=== PATIENT | female | born 1955 | race Caucasian/White ===

== ENCOUNTER 2021-09-29 18:13 | Inpatient (IN) | payer MEDICARE, BC ==
[~2021-09-29] VITALS: Ht 180.3 cm; Wt 65.3 kg
[2021-09-29] MEDS ORDERED: LEVO100T9 PO (19:43)
[2021-09-29] MEDS ORDERED: ZOLP12.52 PO (19:45)
[2021-09-29 20:00] VITALS: BP 150/67
[2021-09-29] MEDS ORDERED: MAGNESIUM HYDROXIDE 30 ML UDC PO PRN (20:00)
[2021-09-29] MEDS ORDERED: MAG HYDROX/AL HYDROX/SIMETH 30 ML UDC PO PRN (20:00)
[2021-09-29] MEDS ORDERED: LORAZEPAM 0.5 MG TABLET PO PRN (20:00)
--- NOTE | 2021-09-29 20:00 | NUR ---
RN NOTE: RECEIVED PT. DIRECT ADMIT AWAKE ALERT. NO S/SX OF ACUTE DISTRESS NOTED. PATIENT IS, ANXIOUS,EASILY AGITATED,HYPERVERBAL, NEEDY DEMENDING, FREQUENTLY REDIRECTIONS. SAFETY PRECAUTIONS MAINTAINED. WILL CONTINUE TO MONITOR Q15MIN ROUNDS FOR SAFETY AND BEHAVIOR.
[2021-09-29] MEDS ORDERED: BLOOD SUGAR DIAGNOSTIC 1 EACH STRIP IN ONE (20:30)
[2021-09-29] MEDS: ACETAMINOPHEN 325 MG TABLET PO PRN (21:17)
--- NOTE | 2021-09-29 22:23 | NUR ---
RN NOTES: ANXIETY PT. C/O FEELING ANXIOUS RESTLESS,PARANOID PRN ATIVAN 0.5 MG PO GIVEN , WILL CONTINUE TO MONITOR.
[2021-09-29 22:56] VITALS: BP 129/80
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
--- NOTE | 2021-09-29 23:12 | NUR ---
RN NOTES: REFUSED SKIN SKIN ASESSMENT PT. REFUSED SKIN ASSESSMENT AND PHOTOS TAKEN , PER PT. MY SKIN IS FINE , NO NEED TO BE ASSESS , PT BEHAVIOR UNCOOPERTIVE ANXIOUS, RESTLESS,PARANOID , ENCOURAGED X3 BUT PT. STRONGLY REFUSED.
[2021-09-30 07:26] LABS: BASOPHILS % (AUTO) 0.4 % (0.0-2.0); EOSINOPHILS % (AUTO) 1.5 % (0.0-6.0); HEMATOCRIT 31 % (33-45); HEMOGLOBIN 10.8 g/dL (11.5-14.8); LYMPHOCYTES # (AUTO) 0.8 K/uL (0.8-4.8); LYMPHOCYTES % (AUTO) 18.7 % (20.0-44.0); MEAN CORPUSCULAR HGB CONC 35 g/dl (31.0-36.0); MEAN CORPUSCULAR VOLUME 91 fL (82-100); MONOCYTES # (AUTO) 0.4 K/uL (0.1-1.30); MONOCYTES % (AUTO) 9.4 % (2.0-12.0); PLATELET COUNT (AUTO) 206 K/uL (150-450); RED BLOOD CELL COUNT(AUTO) 3.38 MIL/uL (4.0-5.2); WHITE BLOOD COUNT (AUTO) 4.3 K/uL (4.3-11.0)
[2021-09-30 07:54] LABS: CALCIUM, SERUM 8.2 mg/dL (8.5-10.1); CREATININE 0.8 mg/dL (0.6-1.3); POTASSIUM 3.2 mmol/L (3.5-5.1)
--- NOTE | 2021-09-30 09:15 | NUR ---
GPS RN NOTE, RECEIVED PATIENT AWAKE AND IN BED, A/O X4 , NO S/S OR COMPLAINTS OF PAIN AT THIS TIME. ROOM AIR AND NO SOB OR DISTRESS NOTED , CALM, AND COOPERATIVE. PATIENT DENIES SUICIDAL AND HOMICIDAL IDEATIONS AT THIS TIME. PATIENT HAS NO NEEDS AT THIS TIME. PATIENT BED SIDE RAILS UP X 2 FOR SAFETY. PATIENT BED IS LOCKED, LOW, WITH BED ALARM ON. WILL CONTINUE TO MONITOR THIS PATIENT Q15 MINUTES WITH THE HELP OF STAFF TO MAINTAIN SAFETY.
[2021-09-30] MEDS: DIVALPROEX SODIUM 125 MG TABLET.DR PO SCH ×2 (10:00→10:47)
[2021-09-30] MEDS: OLANZAPINE 5 MG TABLET PO SCH ×2 (10:00→10:46)
--- NOTE | 2021-09-30 10:50 | NUR ---
RN NOTE PATIENT REFUSED THE 1000 MEDS OFFERED 3X
[2021-09-30] MEDS: POTASSIUM CHLORIDE 20 MEQ TAB.PRT.SR PO SCH ×2 (12:08→12:52)
--- NOTE | 2021-09-30 12:45 | NUR ---
RN-CO: DR RIVAS WAS NOTIFIED TO RECONCILE HOME MEDICATION.
--- NOTE | 2021-09-30 18:29 | NUR ---
GPS RN CLOSING NOTES PATIENT AWAKE , A/O X3 , REFUSED DEPAKOTE AND OLANZAPINE MEDICATION DUE AT 1000 , WITH ANXIOUS , DEMANDING AND HYEPRVERBAL BEHAVIOR NOTED, KEPT ON ASKING WHEN SHES GONNA BE DISCHARGE , NOTED WITH LOW K 3.2 AND K REPLACED WITH 40 MEQ BY MOUTH AND PATIENT TOOK IT , ALL NEEDS ATTENEDED AND SAFETY PRECAUTIONS PROVIDED ,ENDORSED TO NEXT SHIFT
--- NOTE | 2021-09-30 18:33 | NUR ---
RN-CO: PATIENT REFUSED T3 AND T4, ENCOURAGED SEVERAL TIMES BUT SHE STILL REFUSED.
--- NOTE | 2021-09-30 19:15 | NUR ---
GPS RN NOTES RECEIVED PATIENT IN BED AWAKE, ALERT AND ORIENTED X4, ABLE TO MAKE NEEDS KNOWN. AT PT'S BEDSIDE SUPPORTIVE WITH CARE. NO S/SX OF ACUTE DISTRESS NOTED. PATIENT REMAINS ANXIOUS, DEMANDING, NEEDY, HYPERVERBAL AND UNCOOPERATIVE. DENIES SI/HI/AVH AT THIS TIME. SAFETY PRECAUTIONS MAINTAINED. WILL CONTINUE TO MONITOR Q15MIN ROUNDS FOR SAFETY AND BEHAVIOR.
--- NOTE | 2021-09-30 20:00 | NUR ---
GPS RN NOTES PATIENT REFUSED WEEKLY SKIN ASSESSMENT. EXPLAINED RISK AND BENEFITS BUT PATIENT BECAME AGITATED.
[2021-09-30] MEDS: TEMAZEPAM 7.5 MG CAPSULE PO PRN (23:43)
--- NOTE | 2021-10-01 06:52 | NUR ---
GPS RN NOTES PATIENT REFUSED AM LABS. EXPLAINED RISKS AND BENEFITS. PATIENT CONTINUED TO REFUSE. WILL ENDORSE TO DAY SHIFT NURSE FOR CONTINUITY OF CARE.
[2021-10-01] MEDS: LEVOTHYROXINE SODIUM 100 MCG TABLET PO SCH (07:59)
[2021-10-01] MEDS: DIVALPROEX SODIUM 125 MG TABLET.DR PO SCH ×3 (08:38→21:00)
--- NOTE | 2021-10-01 09:25 | NUR ---
Patient refused Depakote ,encourage patient and explained benefit of medication ,still refused notified by charge Nurse.
--- NOTE | 2021-10-01 09:30 | NUR ---
RN-CO: DR Corona notified regarding pt's refusal to take medications especially Depakote and Zyprexa.
--- NOTE | 2021-10-01 10:17 | NUR ---
JASPAL Initial Discharge Note: Patient reported that she lives with her at home [address] [place] [address];[phone]. Pt stated that she would want to return back home upon dc. JASPAL will work with the pt, family, and MD to help coordinate appropriate discharge.
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
--- NOTE | 2021-10-01 15:03 | NUR ---
RN-CO: PT REFUSED LAB WORKS, ENC 3X BUT STILL REFUSED.
--- NOTE | 2021-10-01 18:44 | NUR ---
Patient refused BMP X3 ,ENCOURAGED PATIENT , STILL REFUSED .WILL CONTINUE TO MONITOR .
--- NOTE | 2021-10-01 19:48 | NUR ---
GPS RN OPENING NOTES: RECEIVED PATIENT IN BED, AWAKE, A/O X2-3. APPEARS DEPRESSED, FLAT AFFECT, AGGRESSIVE, HYPERVERBAL, ANXIOUS, RESTLESS, GUARDED, DISORGANIZED, UNCOOPERATIVE. STATING "WHO BROUGHT ME HERE, I DON'T WANT ANYTHING FROM YOU. I AM CALLING MY SUPERINTENDENT [employer]ILL". REFUSING TO LISTEN TO STAFF AND REDIRECTION. NO S/S OF DISTRESS. RESPIRATION EVEN AND UNLABORED WITH EQUAL RISE AND FALL OF THE CHEST, ON ROOM AIR. OFFERED FLUID AND SNACKS TOLERATED. BED IN LOWEST POSITION AND LOCKED, SIDE RAILS UP X2 FOR SAFETY. WILL CONTINUE TO MONITOR Q15 FOR MOOD, SAFETY AND BEHAVIOR.
--- NOTE | 2021-10-01 21:56 | NUR ---
GPS RN NOTES: PATIENT REFUSED DEPAKOTE 125MG AT 2100. PATIENT WAS UNCOOPERATIVE AND AGITATED. PER PATIENT "I'M A NURSE PRACTITIONER, I DON'T TAKE PSYCH MEDICATIONS". EDUCATION PROVIDED ON MEDICATION COMPLIANCE BUT PATIENT NEEDS REENFORCEMENT.
--- NOTE | 2021-10-01 22:08 | NUR ---
GPS RN NOTES: DEPAKOTE 125MG 1TAB, RETURNED TO [facility] AT 2207.
[2021-10-02] MEDS: TEMAZEPAM 7.5 MG CAPSULE PO PRN ×2 (00:11→22:58)
--- NOTE | 2021-10-02 00:13 | NUR ---
GPS RN NOTE: INSOMNIA PATIENT C/O INABILITY TO SLEEP AND WANTED TO TAKE SLEEPING MEDICINE. PRN RESTORIL 7.5 MG 1 CAP PO ADMINISTERED PER PATIENT REQUEST.
[2021-10-02] MEDS: LEVOTHYROXINE SODIUM 100 MCG TABLET PO SCH (08:00)
[2021-10-02] MEDS: OLANZAPINE 5 MG TABLET PO SCH (09:00)
[2021-10-02] MEDS: DIVALPROEX SODIUM 125 MG TABLET.DR PO SCH ×2 (09:00→21:53)
--- NOTE | 2021-10-02 11:02 | NUR ---
Individual Therapy: SW attempted to conduct brief therapy. Pt appeared labile and hyperverbal. She stated "what do you want?". Pt was uncooperative at this time and was angry.
--- NOTE | 2021-10-02 19:30 | NUR ---
GPS RN OPENING NOTES: RECEIVED PATIENT IN BED, AWAKE, A/O X2-3. APPEARS DEPRESSED, FLAT AFFECT, AGITATED, HYPERVERBAL, ANXIOUS, RESTLESS, SUSPICIOUS, DISORGANIZED, LOOSE ASSOCIATIONS, UNCOOPERATIVE, LOUD, DEMANDING, NEEDY. THREATENING TO TAVIA THE FACILITY FOR BEING HERE. 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 REFUSING TO LISTEN TO STAFF AND REDIRECTION. NO S/S OF DISTRESS. RESPIRATION EVEN AND UNLABORED WITH EQUAL RISE AND FALL OF THE CHEST, ON ROOM AIR. OFFERED FLUID AND SNACKS TOLERATED. BED IN LOWEST POSITION AND LOCKED, SIDE RAILS UP X2 FOR SAFETY. WILL CONTINUE TO MONITOR Q15 FOR MOOD, SAFETY AND BEHAVIOR.
[2021-10-02 20:11] VITALS: BP 145/83
--- NOTE | 2021-10-02 21:58 | NUR ---
GPS RN NOTES: PATIENT TOOK DEPAKOTE 125MG PO THIS SHIFT.
--- NOTE | 2021-10-02 23:05 | NUR ---
GPS RN NOTES: PATIENT REQUESTED FOR SLEEP MEDICATION D/T INSOMNIA. RESTORIL 7.5MG GIVEN PO AT 2258. WILL CONTINUE TO MONITOR.
--- NOTE | 2021-10-03 06:54 | NUR ---
GPS RN CLOSING NOTES: PATIENT IS AWAKE, A/O X2-3. PATIENT SLEPT 6HRS THIS SHIFT. NO S/S OF DISTRESS. RESPIRATION EVEN AND UNLABORED WITH EQUAL RISE AND FALL OF THE CHEST, ON ROOM AIR. ALL PATIENT CARE NEEDS HAVE BEEN MET ANTICIPATED. BED LOCKED AND IN LOWEST POSITION, SIDE RAILS UP X2 FOR SAFETY, BED ALARM WITHIN REACH. WILL CONTINUE TO MONITOR Q15 FOR SAFETY, MOOD AND BEHAVIOR AND ENDORSE TO AM SHIFT.
[2021-10-03] MEDS: LEVOTHYROXINE SODIUM 100 MCG TABLET PO SCH (08:10)
[2021-10-03] MEDS: DIVALPROEX SODIUM 250 MG TABLET.DR PO SCH ×2 (08:33→21:08)
[2021-10-03] MEDS: OLANZAPINE 5 MG TABLET PO SCH ×3 (08:33→16:53)
--- NOTE | 2021-10-03 09:38 | NUR ---
JASPAL Coordination of Care: Patient will follow up with (Rescue Instructor) Dr. Klaus Gill located at [address] [place] [address]; ([phone]) on October 15 on 11AM, scheduled by Joey.
[2021-10-03] MEDS ORDERED: HALOPERIDOL LACTATE INJ 5 MG/ML VIAL IM PRN (13:30)
--- NOTE | 2021-10-03 13:35 | NUR ---
ROLOCO; RECEIVED AN ORDER FROM DR DAVIS TO DC ZYPREXA DAILY, TO ZYPREXA 5 MG BID PO . THEN GIVE HALDOL 5 MG IM BID FOR EACH REFUSAL OF ZYPREXA.
--- NOTE | 2021-10-03 19:30 | NUR ---
GPS RN OPENING NOTES: RECEIVED PATIENT IN BED, AWAKE, A/O X2-3. APPEARS DEPRESSED, FLAT AFFECT, AGITATED, HYPERVERBAL, ANXIOUS, RESTLESS, SUSPICIOUS, DISORGANIZED, LOOSE ASSOCIATIONS, UNCOOPERATIVE, LOUD, DEMANDING, NEEDY. NO S/S OF DISTRESS. RESPIRATION EVEN AND UNLABORED WITH EQUAL RISE AND FALL OF THE CHEST, ON ROOM AIR. OFFERED FLUID AND SNACKS TOLERATED. BED IN LOWEST POSITION AND LOCKED, SIDE RAILS UP X2 FOR SAFETY. WILL CONTINUE TO MONITOR Q15 FOR MOOD, SAFETY AND BEHAVIOR.
[2021-10-03 20:00] VITALS: BP 112/65
--- NOTE | 2021-10-03 21:20 | NUR ---
GPS RN NOTES: PATIENT IS RIESED BUT TOOK DEPAKOTE 250MG PO THIS SHIFT.
[2021-10-04 08:00] VITALS: BP 150/73
[2021-10-04] MEDS: OLANZAPINE 5 MG TABLET PO SCH ×2 (09:00→16:13)
[2021-10-04] MEDS: DIVALPROEX SODIUM 250 MG TABLET.DR PO SCH ×2 (09:00→21:10)
[2021-10-04] MEDS: LEVOTHYROXINE SODIUM 100 MCG TABLET PO SCH (09:00)
--- NOTE | 2021-10-04 10:35 | NUR ---
RN Notes: Received pt. awake in bed, hyperverbal and loud. Ate 100% for breakfast, compliant on meds after talking with the . Pt. is loud, hyperverbal, irritable, angry mood, agitated, anxious and focusing on the discharge. Pt. refused to take prn med, encouraged to verbalize feelings and motivated to atten group activity. Needs attended and will continue to monitor for safety.
[2021-10-04 16:00] VITALS: BP 144/66
--- NOTE | 2021-10-04 19:15 | NUR ---
GPS RN NOTES RECEIVED PATIENT IN BED AWAKE, ALERT AND ORIENTED X4, ABLE TO MAKE NEEDS KNOWN. AT PT'S BEDSIDE SUPPORTIVE WITH CARE. NO S/SX OF ACUTE DISTRESS NOTED. PATIENT REMAINS ANXIOUS, DEMANDING, NEEDY, LOUD, HYPERVERBAL, UNCOOPERATIVE, FOCUS ON DISCHARGE. DENIES SI/HI/AVH AT THIS TIME. SAFETY PRECAUTIONS MAINTAINED. WILL CONTINUE TO MONITOR Q15MIN ROUNDS FOR SAFETY AND BEHAVIOR.
[2021-10-05] MEDS: LEVOTHYROXINE SODIUM 100 MCG TABLET PO SCH (09:03)
[2021-10-05] MEDS: DIVALPROEX SODIUM 250 MG TABLET.DR PO SCH ×2 (09:03→20:22)
[2021-10-05] MEDS: OLANZAPINE 5 MG TABLET PO SCH ×2 (09:03→16:12)
--- NOTE | 2021-10-05 10:10 | NUR ---
RN Notes: Received pt. awake in bed, hyperverbal and loud. Pt. refused for a V/S checked and telling after talking with the but after talking with the she is still refusing for v/s. Ate 100% for breakfast, compliant on meds after talking with the . Pt. is loud, hyperverbal, irritable, angry mood, agitated, anxious, needy and focusing on the discharge. Encouraged to verbalize feelings and motivated to take shower. Needs attended and will continue to monitor for safety.
--- NOTE | 2021-10-05 14:59 | NUR ---
JASPAL Note: JASPAL and nurse BELINDA Monte assessed pt of sexual orientation due to missing part of the assessment. Pt stated that she is bi-sexual and that she "swings". JASPAL notified this information to Dr. De.
[2021-10-05 16:00] VITALS: BP 126/57
[2021-10-05] MEDS: TEMAZEPAM 7.5 MG CAPSULE PO PRN (20:25)
[2021-10-06 08:00] VITALS: BP 125/66
[2021-10-06] MEDS: LEVOTHYROXINE SODIUM 100 MCG TABLET PO SCH (08:14)
[2021-10-06] MEDS: DIVALPROEX SODIUM 250 MG TABLET.DR PO SCH ×2 (08:14→21:35)
[2021-10-06] MEDS: OLANZAPINE 5 MG TABLET PO SCH ×2 (08:14→16:13)
--- NOTE | 2021-10-06 09:30 | NUR ---
RN Notes: Received pt. awake in bed, hyperverbal and loud. Pt. is needy, easily got irritated, angry mood, focus in the discharge and forgetful. Ate 100% for breakfast, compliant on meds. Pt. was assisted to call with the , needs attended. Encouraged to verbalize feelings, motivated to attend group activity and encouraged to take shower. Needs attended and will continue to monitor for safety.
--- NOTE | 2021-10-06 15:49 | NUR ---
Pt. has been asking to take shower. Staff prepares everything needed for shower and by the time pt. is on the shower, she refused to take shower and been doing it 2x.
[2021-10-06 16:00] VITALS: BP 127/69
--- NOTE | 2021-10-06 19:15 | NUR ---
GPS RN NOTES RECEIVED PATIENT IN BED AWAKE, ALERT AND ORIENTED X4, ABLE TO MAKE NEEDS KNOWN. AT PT'S BEDSIDE SUPPORTIVE WITH CARE. NO S/SX OF ACUTE DISTRESS NOTED. PATIENT REMAINS ANXIOUS, LOUD, DEMANDING, NEEDY, HYPERVERBAL, FOCUSED ON DISCHARGE. DENIES SI/HI/AVH AT THIS TIME. SAFETY PRECAUTIONS MAINTAINED. WILL CONTINUE TO MONITOR Q15MIN ROUNDS FOR SAFETY AND BEHAVIOR.
[2021-10-07] MEDS: ACETAMINOPHEN 325 MG TABLET PO PRN ×2 (03:23→15:02)
--- NOTE | 2021-10-07 07:26 | NUR ---
GPS RN OPENING NOTE RECEIVED PATIENT IN BED AWAKE, ALERT AND ORIENTED X4, ABLE TO MAKE NEEDS KNOWN. NO S/SX OF ACUTE DISTRESS NOTED. DENIES SI/HI/AVH AT THIS TIME. SAFETY PRECAUTIONS MAINTAINED. WILL CONTINUE TO MONITOR Q15MIN ROUNDS FOR SAFETY AND BEHAVIOR.
[2021-10-07 08:00] VITALS: BP 123/68
[2021-10-07] MEDS: LEVOTHYROXINE SODIUM 100 MCG TABLET PO SCH (08:23)
[2021-10-07] MEDS: OLANZAPINE 5 MG TABLET PO SCH ×2 (08:23→16:26)
[2021-10-07] MEDS: DIVALPROEX SODIUM 250 MG TABLET.DR PO SCH ×2 (08:23→21:00)
--- NOTE | 2021-10-07 13:15 | NUR ---
GPS RN NOTE PATIENT IN BED AWAKE, ALERT AND ORIENTED X4, ABLE TO MAKE NEEDS KNOWN. NO S/SX OF ACUTE DISTRESS NOTED. PATIENT REMAINS ANXIOUS, LOUD, DEMANDING, NEEDY, HYPERVERBAL, FOCUSED ON DISCHARGE. DENIES SI/HI/AVH AT THIS TIME. SAFETY PRECAUTIONS MAINTAINED. WILL CONTINUE TO MONITOR Q15MIN ROUNDS FOR SAFETY AND BEHAVIOR.
--- NOTE | 2021-10-07 15:03 | NUR ---
GPS RN NOTE PT C/O BACK PAIN AND REQUESTED FOR TYLENOL. TYLENOL 650MG PO GIVEN ORDERED PRN Q6HR. WILL MONITOR AND REASSESS PT.
[2021-10-07 16:00] VITALS: BP 118/72
[2021-10-07 19:54] VITALS: BP 154/75
[2021-10-08] MEDS: ACETAMINOPHEN 325 MG TABLET PO PRN (02:48)
--- NOTE | 2021-10-08 05:27 | NUR ---
TYLENOL 650MG PRN Q6H @ 0250 Pt c/o mild back pain. Effective, Pt asleep with no s/s of discomfort noted
[2021-10-08] MEDS: LEVOTHYROXINE SODIUM 100 MCG TABLET PO SCH (07:48)
[2021-10-08] MEDS: OLANZAPINE 5 MG TABLET PO SCH ×2 (08:11→16:13)
[2021-10-08] MEDS: DIVALPROEX SODIUM 250 MG TABLET.DR PO SCH ×2 (08:11→21:29)
--- NOTE | 2021-10-08 10:12 | NUR ---
RN-CO: PATIENT IS RIESED BUT SHE IS TAKING PO MEDICATIONS NOW, SHE IS BETTER THAN LAST WEEK. MORE REDIRECTABLE AND FRIENDLY TO STAFF. SHE FORGETS THINGS EASILY. SHE IS VERY NEEDY BUT SHE IS NOW WILLING TO WAIT. WE WILL CONTINUE TO MONITOR AND ATTEND TO HER NEEDS.
[2021-10-09 08:00] VITALS: BP 120/60
[2021-10-09] MEDS: LEVOTHYROXINE SODIUM 100 MCG TABLET PO SCH (08:20)
[2021-10-09] MEDS: OLANZAPINE 5 MG TABLET PO SCH ×2 (09:12→16:52)
[2021-10-09] MEDS: DIVALPROEX SODIUM 250 MG TABLET.DR PO SCH ×2 (09:12→20:30)
--- NOTE | 2021-10-09 20:00 | NUR ---
GPS RN NOTES RECEIVED PT LYING IN BED AWAKE. A/O X3. ABLE TO MAKE NEEDS KNOWN. DISORGANIZED THOUGHTS, IRRITABLE, NEEDY, DEMANDING, LOUD, RESTLESS BUT REDIRECTABLE. DENIES SI/HI AT THIS TIME. SAFETY PRECAUTIONS IN PLACE. WILL CONTINUE TO MONITOR Q15 MIN FOR SAFETY AND BEHAVIOR.
--- NOTE | 2021-10-10 07:30 | NUR ---
GPS RN OPENING NOTE PATIENT IS IN BED, AWAKE AND AMBULATORY. BREATHING UNLABORED AND NOT IN ANY FORM OF DISTRESS. NOTED TO BE DEMANDING. ALL HOSPITAL SAFETY PRECAUTIONS KEPT IN PLACE. WILL CONTINUE TO MONITOR THROUGHOUT SHIFT.
[2021-10-10 08:00] VITALS: BP 115/82
[2021-10-10] MEDS: DIVALPROEX SODIUM 250 MG TABLET.DR PO SCH ×3 (08:58→16:29)
[2021-10-10] MEDS: OLANZAPINE 5 MG TABLET PO SCH ×2 (08:58→16:29)
[2021-10-10] MEDS: LEVOTHYROXINE SODIUM 100 MCG TABLET PO SCH (08:58)
[2021-10-10] MEDS ORDERED: HALOPERIDOL LACTATE INJ 5 MG/ML VIAL IM PRN (09:30)
[2021-10-10] MEDS: ACETAMINOPHEN 325 MG TABLET PO PRN (13:53)
[2021-10-10 16:00] VITALS: BP 102/58
[2021-10-10] MEDS: HALOPERIDOL ORAL CONC 2 MG/ML BOTTLE PO SCH ×2 (17:00→17:17)
--- NOTE | 2021-10-10 17:34 | NUR ---
RN NOTE PATIENT REFUSED HALDOL, STATING THAT IT MAKES HER FEEL DIZZY.
--- NOTE | 2021-10-10 18:46 | NUR ---
RN CLOSING NOTE PATIENT'S VITAL SIGNS REMAINED STABLE THROUGHOUT SHIFT. SHE, HOWEVER, REMAINED PREOCCUPIED WITH BEING DISCHARGED, HER TORTOISES, AND THE NEED TO CALL HER . ALL OF HER NEEDS WERE ATTENDED TO AND ALL HOSPITAL SAFETY PRECAUTIONS WERE KEPT IN PLACE.WILL ENDORSE TO PNEUMATIC TOOL REPAIRER NURSE.
[2021-10-10 20:00] VITALS: BP 131/88
[2021-10-11] MEDS: LEVOTHYROXINE SODIUM 100 MCG TABLET PO SCH (07:43)
[2021-10-11 08:00] VITALS: BP 147/67
[2021-10-11] MEDS: HALOPERIDOL ORAL CONC 2 MG/ML BOTTLE PO SCH ×2 (08:44→16:13)
[2021-10-11] MEDS: DIVALPROEX SODIUM 250 MG TABLET.DR PO SCH ×3 (08:49→16:13)
[2021-10-11] MEDS: OLANZAPINE 5 MG TABLET PO SCH ×2 (08:49→16:13)
--- NOTE | 2021-10-11 14:23 | NUR ---
JASPAL Coordination of Care: Appointment date changed. Patient will follow up with (Campaign Coordinator) Dr. Klaus Gill located at [address] [place] [address]; ([phone]) on October 17 at 10AM who will monitor and provide patients psychotropic medications, scheduled by unit receptionist.
[2021-10-11 16:00] VITALS: BP 148/80
--- NOTE | 2021-10-11 17:15 | NUR ---
RN CLOSING NOTE PATIENT'S VITAL SIGNS REMAINED STABLE THROUGHOUT SHIFT. PT REMAINED PREOCCUPIED WITH BEING DISCHARGED, FORGETTING ABOUT MEALS AND DEMANDING MORE FOOD, HER TORTOISES, AND THE NEED TO CALL HER . ALL OF HER NEEDS WERE ATTENDED TO AND ALL HOSPITAL SAFETY PRECAUTIONS WERE KEPT IN PLACE. WILL ENDORSE TO CLINICAL TECHNOLOGIST NURSE FOR ETHAN.
--- NOTE | 2021-10-11 19:15 | NUR ---
GPS RN NOTES PATIENT IN HER ROOM RESTING COMFORTABLY. A/OX1, NO S/SX OF ACUTE DISTRESS NOTED. PATIENT PRESENTS NEEDY, ANXIOUS, LOUD, IRRITABLE, AND REQUIRES CONSISTENT REDIRECTION. PATIENT IS ALSO DEMANDING AND GETS AGITATED WHEN HER DEMANDS ARE NOT MET IMMEDIATELY. DENIES SI/HI AT THIS TIME. SAFETY MEASURES IN PLACE. WILL CONTINUE TO MONITOR Q15MIN ROUNDS FOR SAFETY AND BEHAVIOR.
[2021-10-11 20:00] VITALS: BP 129/69
[2021-10-12 08:00] VITALS: BP 141/69
[2021-10-12] MEDS: OLANZAPINE 5 MG TABLET PO SCH ×2 (08:15→17:20)
[2021-10-12] MEDS: LEVOTHYROXINE SODIUM 100 MCG TABLET PO SCH (08:15)
[2021-10-12] MEDS: DIVALPROEX SODIUM 250 MG TABLET.DR PO SCH ×3 (08:15→17:20)
[2021-10-12] MEDS: HALOPERIDOL ORAL CONC 2 MG/ML BOTTLE PO SCH (09:00)
--- NOTE | 2021-10-12 09:33 | NUR ---
GAIL NON ADMINISTER STATIONARY ENGINEER APPRENTICE IKELE TO CHANGE TO TABLET FORM
[2021-10-12] MEDS: HALOPERIDOL 5 MG TABLET PO SCH ×2 (10:54→17:20)
[2021-10-12] MEDS ORDERED: HALOPERIDOL LACTATE INJ 5 MG/ML VIAL IM PRN (11:00)
[2021-10-12 16:00] VITALS: BP 137/67
--- NOTE | 2021-10-12 19:33 | NUR ---
RN OPENING NOTE PATIENT IN BED, MARGOT AT BEDSIDE. PATIENT IS A/O X 2-3 AT THIS TIME. PREOCCUPIED WITH WANTING TO GET DISCHARGED, PATIENT IS RESTLESS, AND PARANOID. PATIENT IS ALSO HYPERVERBAL. PATIENT NOT IN ANY RESPIRATORY DISTRESS. SAFETY MEASURES IMPLEMENTED. WILL MONITOR PATIENT Q15 MIN FOR PATIENT SAFETY.
[2021-10-12 20:00] VITALS: BP 141/92
[2021-10-13 08:00] VITALS: BP 131/69
[2021-10-13] MEDS: LEVOTHYROXINE SODIUM 100 MCG TABLET PO SCH (09:24)
[2021-10-13] MEDS: DIVALPROEX SODIUM 250 MG TABLET.DR PO SCH ×3 (09:24→16:56)
[2021-10-13] MEDS: HALOPERIDOL 5 MG TABLET PO SCH ×2 (09:24→16:56)
[2021-10-13] MEDS: OLANZAPINE 5 MG TABLET PO SCH ×2 (09:24→16:56)
[2021-10-13 16:00] VITALS: BP 118/63
[2021-10-13 20:21] VITALS: BP 126/70
--- NOTE | 2021-10-13 20:24 | NUR ---
RN NOTES: PATIENT RESTING IN BED AWAKE, ALERT. WAS AT PT'S BEDSIDE SUPPORTIVE WITH CARE. NO S/SX OF ACUTE DISTRESS NOTED. PATIENT REMAINS ANXIOUS, LOUD, DEMANDING, NEEDY, HYPERVERBAL, FOCUSED ON DISCHARGE. DENIES SI/HI/AVH AT THIS TIME. SAFETY PRECAUTIONS MAINTAINED. WILL CONTINUE TO MONITOR Q15MIN ROUNDS FOR SAFETY AND BEHAVIOR.
--- NOTE | 2021-10-14 07:00 | NUR ---
GPS RN OPENING NOTES PATIENT LAYING IN BED, A/O X 3, ABLE TO MAKE NEEDS KNOWN. PATIENT IS ANXIOUS, DEMANDING, WITH RAPID SPEECH. NO COMPLAINTS OF PAIN, DISCOMFORT, OR S/S RESPIRATORY DISTRESS. SAFETY MEASURES IN PLACE: BED IN LOWEST LOCKED POSITION, SIDE RAILS UP X 2, CALL LIGHT WITHIN REACH. WILL CONTINUE TO MONITOR.
[2021-10-14] MEDS: LEVOTHYROXINE SODIUM 100 MCG TABLET PO SCH (07:34)
[2021-10-14 08:00] VITALS: BP 118/57
[2021-10-14] MEDS: DIVALPROEX SODIUM 250 MG TABLET.DR PO SCH ×3 (08:35→16:11)
[2021-10-14] MEDS: HALOPERIDOL 5 MG TABLET PO SCH ×2 (08:35→16:12)
[2021-10-14] MEDS: OLANZAPINE 5 MG TABLET PO SCH ×2 (08:36→16:11)
[2021-10-14] MEDS ORDERED: HALOPERIDOL DECANOATE IM 100 MG/ML AMPUL IM ONE (13:00)
[2021-10-14 16:00] VITALS: BP 119/62
--- NOTE | 2021-10-14 18:01 | NUR ---
GPS RN CLOSING NOTES PATIENT LAYING IN BED, A/O X 3, ABLE TO MAKE NEEDS KNOWN. PATIENT IS ANXIOUS, DEMANDING, WITH RAPID SPEECH. NO COMPLAINTS OF PAIN, DISCOMFORT, OR S/S RESPIRATORY DISTRESS. SAFETY MEASURES IN PLACE: BED IN LOWEST LOCKED POSITION, SIDE RAILS UP X 2, CALL LIGHT WITHIN REACH. ALL NEEDS MET. WILL ENDORSE TO SENIOR ANDROID SOFTWARE ENGINEER FOR ETHAN.
[2021-10-14 20:43] VITALS: BP 131/65
--- NOTE | 2021-10-15 01:48 | NUR ---
RN NOTES: REFUSED SKIN ASESSMENT PT. REFUSED WEEKLY SKIN ASSESSMENT AND PHOTOS TAKEN , PER PT. MY SKIN IS FINE , NO NEED TO BE ASSESS ,UNCCOPERTIVE , ENCOURAGED X3 BUT PT. STRONGLY REFUSED.
[2021-10-15] MEDS: LEVOTHYROXINE SODIUM 100 MCG TABLET PO SCH (07:59)
[2021-10-15 08:00] VITALS: BP 114/67
--- NOTE | 2021-10-15 09:15 | NUR ---
RN-CO: PATIENT RESTING IN BED AWAKE, ALERT. NO S/SX OF ACUTE DISTRESS NOTED. PATIENT REMAINS ANXIOUS, LOUD,DEMANDING, NEEDY, HYPERVERBAL, FOCUSED ON DISCHARGE. DENIES SI/HI/AVH AT THIS TIME. SAFETY PRECAUTIONS MAINTAINED. WILL CONTINUE TO MONITOR Q15MIN ROUNDS FOR SAFETY AND BEHAVIOR.
--- NOTE | 2021-10-15 09:45 | NUR ---
SW Note: SW offered pt nursing facility option and pt stated "NO I WANT TO GO HOME". Pt refused nursing facility option.
[2021-10-15] MEDS: HALOPERIDOL 5 MG TABLET PO SCH ×2 (10:00→16:09)
[2021-10-15] MEDS: DIVALPROEX SODIUM 250 MG TABLET.DR PO SCH ×3 (10:01→16:09)
[2021-10-15] MEDS: OLANZAPINE 5 MG TABLET PO SCH ×2 (10:01→16:09)
--- NOTE | 2021-10-15 12:01 | NUR ---
RN-CO: PT REFUSED DEPAKOTE AND SHE STATED " I DON'T LIKE DEPAKOTE IT HAS A LOT OF SIDE EFFECTS."
--- NOTE | 2021-10-15 13:28 | NUR ---
RN-CO: PATIENT REFUSED DEPAKOTE AT 1200 NOON, SHE STATED THAT IT HAS A LOT OF SIDE EFFECTS AND SHE HATES TO TAKE IT. SHE HAS A PRESSURED SPEECH AND FOCUS ON HER DISCHARGE, CALLING HER AND FOOD. SHE REMAINS TO BE FORGETFUL AND DISORGANIZED.
--- NOTE | 2021-10-15 14:41 | NUR ---
JASPAL Family Contact: SW contacted patient's To ([phone]) to discuss if pt is welcomed back home or would need a SNF.
--- NOTE | 2021-10-15 14:59 | NUR ---
JASPAL Family Contact: SW contacted patient's To ([phone]) and discussed her discharge and he stated when pt is stable he would want her back home.
[2021-10-15 16:00] VITALS: BP 141/89
[2021-10-15 20:00] VITALS: BP 102/52
[2021-10-15 20:06] VITALS: BP 102/52
[2021-10-16] MEDS: LEVOTHYROXINE SODIUM 100 MCG TABLET PO SCH (07:44)
[2021-10-16 08:00] VITALS: BP 117/70
[2021-10-16] MEDS: DIVALPROEX SODIUM 250 MG TABLET.DR PO SCH ×3 (09:16→17:06)
[2021-10-16] MEDS: OLANZAPINE 5 MG TABLET PO SCH ×2 (09:16→17:06)
[2021-10-16] MEDS: BENZTROPINE MESYLATE (1 MG) 1 MG TABLET PO SCH ×2 (09:16→17:07)
[2021-10-16] MEDS: HALOPERIDOL 5 MG TABLET PO SCH ×2 (09:17→17:06)
--- NOTE | 2021-10-16 09:45 | NUR ---
JASPAL Family Contact: JASPAL contacted patient's To ([phone]) and discussed discharge plan and he stated that he feels safe for pt to return back home and pt can return back home. JASPAL offered facility options and he stated "No, pt can come back home, I take care of her".
--- NOTE | 2021-10-16 10:43 | NUR ---
JASPAL Coordination of Care: Patient will follow up with (Director Transportation) Dr. Klaus Gill located at [address] [place] [address]; ([phone]) on October 29 at 1:15PM, changed by dental receptionist.
[2021-10-16 16:00] VITALS: BP 116/57
[2021-10-16 20:15] VITALS: BP 108/64
[2021-10-16 20:17] VITALS: BP 108/64
[2021-10-17 08:00] VITALS: BP 126/65
[2021-10-17] MEDS: LEVOTHYROXINE SODIUM 100 MCG TABLET PO SCH (08:00)
[2021-10-17] MEDS: HALOPERIDOL 5 MG TABLET PO SCH ×2 (09:05→17:12)
[2021-10-17] MEDS: OLANZAPINE 5 MG TABLET PO SCH ×2 (09:05→17:12)
[2021-10-17] MEDS: DIVALPROEX SODIUM 250 MG TABLET.DR PO SCH ×3 (09:05→17:12)
[2021-10-17] MEDS: BENZTROPINE MESYLATE (1 MG) 1 MG TABLET PO SCH ×2 (09:06→17:13)
[2021-10-17 16:00] VITALS: BP 121/68
[2021-10-18 08:00] VITALS: BP 90/67
[2021-10-18] MEDS: BENZTROPINE MESYLATE (1 MG) 1 MG TABLET PO SCH ×2 (10:01→16:58)
[2021-10-18] MEDS: OLANZAPINE 5 MG TABLET PO SCH ×2 (10:01→16:58)
[2021-10-18] MEDS: DIVALPROEX SODIUM 250 MG TABLET.DR PO SCH ×3 (10:02→16:58)
[2021-10-18] MEDS: HALOPERIDOL 5 MG TABLET PO SCH ×2 (10:02→16:58)
[2021-10-18] MEDS: LEVOTHYROXINE SODIUM 100 MCG TABLET PO SCH (10:02)
--- NOTE | 2021-10-18 12:59 | NUR ---
Court Notification: Patient's court hearing for 30 day was today and it was upheld for GD. Addendum: 10/18/21 at 1301 by JASPAL BARRERA Error: JASPAL contacted pt's To ([phone]) and notified of [address] hearing.
--- NOTE | 2021-10-18 13:00 | NUR ---
Court Hearing: Patient's court hearing for 30 day was today and it was upheld for GD.
[2021-10-18 16:00] VITALS: BP 115/69
[2021-10-18 20:00] VITALS: BP 145/71
[2021-10-19] MEDS: ACETAMINOPHEN 325 MG TABLET PO PRN (01:08)
[2021-10-19] MEDS: LEVOTHYROXINE SODIUM 100 MCG TABLET PO SCH ×2 (07:30→09:43)
[2021-10-19 08:00] VITALS: BP 109/71
--- NOTE | 2021-10-19 08:04 | NUR ---
Verónica: JASPAL contacted patient's To ([phone]) notified of pt returning back home. He stated that he is feeling safe with pt and will be picking up pt to take her home. JASPAL safety planned.
--- NOTE | 2021-10-19 08:05 | NUR ---
SW Discharge Note: Patient will be discharged back home located at [address] [place] [address];[phone]. Patients To ([phone]) will pick up and delivery driver pt at 2PM. Pt is alert and oriented x3. Patient denies suicidal or homicidal ideation. Pt denies visual/auditory hallucinations. Pt happy to be going back home. Patient will follow up with (Meteorology Professor) Dr. Klaus Gill located at [address] [id number]; ([phone]) on October 29 at 1:15PM who will monitor and provide patients psychotropic medications. Pt presents with euthymic mood and congruent affect.
[2021-10-19] MEDS: OLANZAPINE 5 MG TABLET PO SCH (09:22)
[2021-10-19] MEDS: HALOPERIDOL 5 MG TABLET PO SCH (09:24)
[2021-10-19] MEDS: BENZTROPINE MESYLATE (1 MG) 1 MG TABLET PO SCH (09:24)
[2021-10-19] MEDS: DIVALPROEX SODIUM 250 MG TABLET.DR PO SCH ×2 (09:25→14:02)
--- NOTE | 2021-10-19 14:05 | NUR ---
RN-DISCHARGE NOTES PATIENT HAD A DISCHARGE ORDER FROM MIRYAM ESPINOZA ( PSYCHIATRIST) AND MIRYAM SALCEDO ( SOLAR ENERGY SYSTEM INSTALLER) MEDICALLY CLEARED PATIENT FOR DISCHARGE. PATIENT A/O X3 DENIES SI/HI AND AVH AT THE TIME OF DISCHARGE. ALL DISCHARGE PAPERS WAS SIGN BY THE PATIENT. DISCHARGE MEDICATIONS WAS REVIEWED WITH THE PATIENT WITH UNDERSTANDING. INSTRUCTED PATIENT TO FOLLOW UP WITH HER PCP ON @ 1:15PM OR NEEDED AND CALL 911 OR GO TO THE NEAREST EMERGENCY ROOM INCASE OF EMERGENCY . BILLING AND INSURANCE COORDINATOR WAS ACCOMPANIED PATIENT TO THE LOBBY FOR SAFETY PATIENT LEFT THE UNIT IN STABLE CONDITION A/O X3 AMBULATORY STEADY GAIT, ALL BELONGINGS INCLUDING DISCHARGE PAPERS AND RX WAS GIVEN TO THE PATIENT. PATIENT REFUSED FULL BODY ASSESSMENT PRIOR TO DISCHARGE.PATIENT WAS DIRECTOR OF MATERIALS BY MARGOT VIA PRIVATE CAR.
== END 2021-10-19 14:05 | disposition home or self-care (01) | DRG 885 ==
LOC: GPS 19:05
PROVIDERS: ADMIT Nurse Practitioner Psychiatric/Mental Health; ATTEND Nurse Practitioner Acute Care
DX: F31.2 Bipolar disorder, current episode manic severe with psychotic features (principal); E03.9 Hypothyroidism, unspecified; D63.8 Anemia in other chronic diseases classified elsewhere; G40.909 Epilepsy, unspecified, not intractable, without status epilepticus; Z87.891 Personal history of nicotine dependence; E87.6 Hypokalemia; Z79.899 Other long term (current) drug therapy; Z91.19 Patient's noncompliance with other medical treatment and regimen; Z91.14 Patient's other noncompliance with medication regimen
CPT/HCPCS: 36415; 80048-TC; 80061-TC; 85025-TC; 87081-TC; J1630; J1631